=== PATIENT | female | born 1940 | race Caucasian/White ===

== ENCOUNTER 2019-04-27 01:41 | Outpatient (CLI) | payer MEDICARE, OTHER ==
[2019-04-27 10:38] LABS: #Basophils 0.1 thou/uL (0.0-0.2); #Eosinphils 0.3 thou/uL (0.0-0.7); #Lymphocytes 1.6 thou/uL (1.20-3.40); #Monocytes 0.6 thou/uL (0.11-0.59); #Neutrophils 4.7 thou/uL (1.40-6.50); %Eosinophils 4.1 % (0.0-10.0); %Lymphocytes 21.9 % (21.0-51.0); %Monocytes 8.3 % (0.0-10.0); %Neutrophils 64.7 % (42.0-75.0); Hemoglobin 14.5 g/dL (12.0-16.0); Mean Corpuscular HGB CONC 32.7 g/dL (32.0-36.0); Mean Corpuscular Hemoglobin 31.7 pg (27.0-31.0); Mean Corpuscular Volume 96.8 fL (78.0-98.0); Mean Platelet Volume 8.7 fL (7.4-10.4); Platelet Count 158 thou/uL (130-400); RBC Distribution Width 12.4 % (11.5-14.5); Red Blood Cell (RBC) Count 4.57 mill/uL (4.20-5.40); White Blood Cell (WBC) Count 7.2 thou/uL (4.8-10.8)
[2019-04-27 10:40] LABS: Bilirubin Negative (Negative); Blood, Urine Negative (Negative); Clarity CLEAR (Clear); Glucose, Urine (Dipstick) Negative (Negative); Leukocyte Moderate (Negative); Nitrite Negative (Negative); Protein, Urine (Dipstick) Negative (Neg-Trace); Specific Gravity, Urine 1.017 (1.002-1.036); Urobilinogen 0.2 mg/dL (0.2-1.0); pH, Urine 5.5 (5.0-9.0)
[2019-04-27 10:42] LABS: PTT 31.5 SEC (22.9-36.1); Prothrombin Time 13.5 SEC (12.0-14.7)
[2019-04-27 10:44] LABS: Bacteria/HPF None Seen HPF (None Seen)
[2019-04-27 10:46] LABS: Pathc Cast-AUWi Flag 3.53 (0-2.49)
[2019-04-27 10:53] LABS: Hyaline Casts/LPF 0-3 HYALINE CAST LPF (0-3 Hyaline); Other Casts/LPF None Seen LPF (0-3 Hyaline)
[2019-04-27 10:56] LABS: Anion Gap 15 mmol/L (10-20); BUN (Urea Nitrogen) 22 mg/dL (9.8-20.1); Calc. Creatinine Clearance 0 mL/min (70-130); Calcium 9.4 mg/dL (7.8-10.44); Carbon Dioxide 24 mmol/L (23-31); Chloride 104 mmol/L (98-107); Estimated GFR-MDRD 49; Glucose 83 mg/dL (83-110); Potassium 4.5 mmol/L (3.5-5.1); Sodium 138 mmol/L (136-145)
--- NOTE | 2019-04-28 21:24 | EKG ---
Test Reason : Blood Pressure : / mmHG Vent. Rate : 058 BPM Atrial Rate : 052 BPM P-R Int : 234 ms QRS Dur : 086 ms QT Int : 426 ms P-R-T Axes : 048 -08 008 degrees QTc Int : 418 ms Sinus bradycardia with 1st degree A-V block with Premature supraventricular complexes Low voltage QRS Cannot rule out Anterior infarct (cited on or before 24-DEC-2009) Abnormal ECG When compared with ECG of 24-DEC-2009 12:29, Premature supraventricular complexes are now Present CA interval has increased QRS voltage has decreased T wave inversion now evident in Anterior leads Confirmed by Fran SHUKLA ([id number]) on 04/28/2019 9:23:42 PM Referred By: MARISABEL Confirmed By:Fran SHUKLA
== END 2019-04-27 01:42 | disposition home or self-care (01) ==
LOC: LABBT 01:41
PROVIDERS: ATTEND Orthopaedic Surgery
DX: Z01.818 Encounter for other preprocedural examination (principal); M17.12 Unilateral primary osteoarthritis, left knee
CPT/HCPCS: 80048; 81001; 85025; 85610; 85730; 87081; 93005; 93010

== ENCOUNTER 2019-05-09 06:40 | Day surgery (SDC) | payer MEDICARE, OTHER ==
[2019-04-27 09:09] VITALS: BMI 35.4
[2019-05-09] MEDS ORDERED: Fentanyl 100 MCG/2 ML VIAL ONE ×3 (07:24→12:03)
[2019-05-09] MEDS ORDERED: Midazolam HCl 2 mg/2 ml Vial ONE (07:24)
[2019-05-09] MEDS ORDERED: Vancomycin HCl 1.5 GM in Sodium Chloride 0.9% 250 ML 300 ML IVPB SCH (07:30)
[2019-05-09] MEDS ORDERED: Tranexamic Acid 1,000 MG/10 ML VIAL ONE (07:44)
[2019-05-09] MEDS ORDERED: Levofloxacin 500 mg/D5W 100 ml Premix Bag ONE (07:44)
[2019-05-09] MEDS ORDERED: Sodium Chloride 0.9% 100 ML ONE (07:44)
[2019-05-09] MEDS ORDERED: Famotidine/PF 20 mg/2ml Vial ONE (07:44)
[2019-05-09] MEDS ORDERED: Fentanyl 100 MCG/2 ML VIAL SLOW IVP PRN ×3 (08:59→11:12)
[2019-05-09] MEDS ORDERED: Zolpidem Tartrate 5 MG TAB PO PRN ×2 (08:59→11:10)
[2019-05-09] MEDS ORDERED: Acetaminophen 325 MG TAB PO PRN (08:59)
[2019-05-09] MEDS ORDERED: Promethazine HCl 25 MG/ML VIAL IM PRN ×3 (08:59→11:10)
[2019-05-09] MEDS ORDERED: diphenhydrAMINE 25 MG CAP PO PRN (08:59)
[2019-05-09] MEDS ORDERED: HYDROcodone/Acetaminophen 10/325 mg Tablet PO PRN ×3 (08:59→11:10)
[2019-05-09] MEDS: Senokot S 8.6-50 MG TAB PO SCH ×2 (09:00→21:01)
[2019-05-09] MEDS ORDERED: Multivitamin W/ Minerals 1 TAB PO SCH (09:00)
[2019-05-09] MEDS: Ferrous Gluconate 324 MG TAB PO SCH ×2 (09:00→21:01)
[2019-05-09] MEDS: Aspirin 81 mg Enteric Coated Tablet PO SCH ×2 (09:00→21:01)
[2019-05-09] MEDS ORDERED: PROVENTIL INHALER 6.7 G (200 INHALATIONS) INH PRN (09:03)
[2019-05-09] MEDS ORDERED: Diphenoxylate HCl/Atropine Tablet PO PRN (09:03)
[2019-05-09] MEDS ORDERED: Ondansetron HCl/PF 4 MG/2 ML Vial IVP PRN (09:45)
[2019-05-09] MEDS ORDERED: Promethazine HCl 25 MG/ML VIAL SLOW IVP PRN (09:45)
[2019-05-09] MEDS ORDERED: Ketorolac Tromethamine 30 MG/ML VIAL ONE (11:05)
[2019-05-09] MEDS ORDERED: traMADol HCl 50 MG TAB PO PRN (11:10)
[2019-05-09] MEDS ORDERED: Ondansetron PF 4 MG/2 ML Vial IVP PRN (11:10)
[2019-05-09] MEDS ORDERED: HYDROmorphone 2 MG/ML VIAL ONE (11:19)
[2019-05-09] MEDS ORDERED: Ropivacaine 0.2% HCl/PF (40 MG/20 ML VIAL) ONE (11:24)
[2019-05-09] MEDS ORDERED: Ropivacaine 0.5% HCl/PF (150 MG/30 ML VIAL) ONE (11:24)
--- NOTE | 2019-05-09 11:38 | RAD ---
Radiograph left knee 2 views: DATE: 05/09/2019 HISTORY: 78-year-old female with chronic left knee pain due to osteoarthritis. FINDINGS: Metallic prostheses covered the resurfaced articular surfaces of distal femur and the tibial plateau. Resurfacing changes of posterior aspect of patella. Significant amounts of subcutaneous emphysema in the anterior soft tissues indicate that the procedure was very recent. IMPRESSION: Very recently status post total left knee replacement arthroplasty.
[2019-05-09] MEDS ORDERED: Glycopyrrolate 0.2 MG/ML 5 ML SYRINGE ONE (12:15)
[2019-05-09] MEDS ORDERED: Lidocaine 1% PF 5 ML VIAL ONE (12:15)
[2019-05-09] MEDS ORDERED: Rocuronium Bromide 10 MG/ML (10ML VIAL) ONE (12:15)
[2019-05-09] MEDS ORDERED: Ondansetron PF 4 MG/2 ML Vial ONE (12:15)
[2019-05-09] MEDS ORDERED: PROPOFOL 200 MG/20 ML VIAL ONE (12:15)
[2019-05-09] MEDS: Dicyclomine 20 MG TAB PO SCH ×3 (13:00→21:01)
--- NOTE | 2019-05-09 13:07 | OP ---
DATE OF PROCEDURE: 05/09/2019 PREOPERATIVE DIAGNOSIS: Degenerative joint disease, left knee. POSTOPERATIVE DIAGNOSIS: Degenerative joint disease, left knee. PROCEDURE PERFORMED: Left total knee arthroplasty using [place] [employer], 4 femur, 4 tibia, 9 mm CS X3 polyethylene, and a 32 patella. PLANNING FEEDER: Megan Mesa PA-C. BLOOD LOSS: Minimal. SPECIMEN: None. DRAIN: None. COMPLICATION: None. TOURNIQUET TIME: 59 minutes. PROCEDURE IN DETAIL: After informed consent was obtained in the preoperative holding area, the patient was taken to the operative suite where general anesthesia was induced. Once adequate level of general anesthesia was obtained, the patient was positioned and a well-padded tourniquet was placed around the left proximal thigh. The left lower extremity was then prepped and draped in the usual sterile fashion. Prior to exsanguination, a time-out was called and all members of the surgical team agreed upon site, surgeon, and patient. The extremity was then exsanguinated and the tourniquet was raised. A midline longitudinal incision was then made directly over the patella extending 2 fingerbreadths above the superior pole of the patella and 2 fingerbreadths inferior to the inferior patellar pole of the patella. Deeper subcutaneous layers were dissected sharply and local bleeding was controlled with Bovie electrocautery. A quad tendon longitudinal split was then made sharply and a median parapatellar arthrotomy was carried out both sharp and with Bovie electrocautery, carried down to 1 fingerbreadth medial to the tibial tubercle. The knee was then placed into flexion and the patella was everted nicely, and a copious fat pad ectomy was performed allowing for greater exposure of the tibia. The computer-assisted distal femoral fiducial was then placed and pinned firmly, and the distal femoral cutting guide was pinned firmly into place. The oscillating saw was then used to remove the appropriate amount of bone. The 4-in-1 cutting block was then placed on the distal femur and the oscillating saw was used to remove the appropriate amount of bone off the anterior, posterior, and chamfer cuts. After completion of bone cuts, the anterior cruciate ligament was resected sharply and the posterior cruciate ligament retractor was placed and the tibia was subluxed for better exposure. Partial meniscectomies were carried out, and the tibial computer-assisted fiducial was pinned, and the cutting guide was placed. Oscillating saw was then used to remove the bone, with Hohmann retractors used to take care and protect the collateral ligaments. After the tibial resection was performed, a laminar commercial energy rater was placed in between the freshened bone cuts. The knee placed at 90 degrees and further bilateral meniscectomies were carried out, and the curved osteotome and curettage were used to remove any excess bone spurs in the posterior compartment. The trial femoral component, tibial baseplate were placed with the appropriate polyethylene trial insert with an appropriate polyethylene spacer and patellar button. The knee was taken through full range of motion with flexion and extension from 0 to 90 degrees and patellar broach squarely in the trochlea without any squinting or subluxation noted. The knee was also stable to varus and valgus stressing at 0, 15, 45, and 90 degrees of flexion. The drawer was negative. All trial components were then removed and the keel punch was used to provide the appropriate defect in the tibia with a mallet. The freshened bone cuts were copiously irrigated with pulsatile lavage of about 1.5 L to remove all excess debris. The freshened bone cuts were then dried with suction and lap sponge. The knee was placed in flexion and retractors were placed to provide access to all bone cuts. Tobramycin-impregnated methyl methacrylate cement was then placed on the freshened bone cuts and implants which were malleted firmly into place. Curettage and [place] elevators were used to remove any excess bone cement. The knee was placed into full extension and the patellar button was placed under compression, and the cement was allowed to cure. Once completed, the components were again taken through full range of motion and copious irrigation of the knee was carried out with another liter of normal saline. All components were inspected fully with full range of motion and varus and valgus stressing. There was no laxity noted and full extension was observed clinically. Primary closure was accomplished with #2 interrupted Vicryl stitch of the arthrotomy defect. This was oversewn with a #2 running Quill barbed stitch. The gravitational platelet system was then injected into the arthrotomy prior to closure. The subcutaneous layer was then closed with a running 0 barbed Monocryl stitch and skin closure accomplished with a running subcuticular 3-0 Monocryl barbed Quill stitch and augmented with cement on the skin. Tourniquet was lowered. Good spontaneous return of distal pulses was noted clinically and a sterile dressing was applied to the incision. The procedure was terminated without any complications. The patient was awakened in the operative suite and the was removed, and the patient was taken to the recovery room in stable condition. Job ID: [id number]
[2019-05-09] MEDS: Sodium Chloride 0.9% 1,000 ML IV SCH ×2 (15:26→19:00)
[2019-05-09] MEDS: Ketorolac Tromethamine 30 MG/ML VIAL IM SCH ×2 (15:27→19:35)
[2019-05-09] MEDS ORDERED: Nitroglycerin 0.4 MG TAB 1 EACH PO PRN (16:40)
[2019-05-09] MEDS ORDERED: Polyethylene Glycol 3350 17 GM Packet PO PRN (16:40)
[2019-05-09] MEDS ORDERED: Nitroglycerin 0.4 MG TAB (25 Tab Bottle) ONE (16:47)
[2019-05-09] MEDS: Mometasone/Formoterol 120 PUFF INHALER INH SCH (18:46)
[2019-05-09] MEDS: Ketorolac Tromethamine 30 MG/ML VIAL IVP PRN (19:06)
--- NOTE | 2019-05-09 20:18 | PDOC.PN ---
- Subjective Encounter Start Date: 05/09/19 Encounter Start Time: 14:00 Patient seen and examined for med mngt. No fever/chills/CP/SOB/N/V. Pain controlled. No new complaints. No overnight events - Objective MAR Reviewed: Yes Vital Signs & Weight: Vital Signs (12 hours) Temp Pulse Pulse Resp BP BP Pulse Ox 05/09/19 20:01 97.7 F 60 18 101/66 94 L 05/09/19 18:46 54 L 14 05/09/19 16:18 91 92/58 L 05/09/19 14:00 99 Weight Weight 240 lb I&O: 05/08/19 05/09/19 05/10/19 06:59 06:59 06:59 Intake Total 980 Output Total 150 Balance 830 Result Diagrams: 05/10/19 05:42 EKG Reviewed by me: Yes (SB, 1 deg AV block) Phys Exam - Physical Examination Constitutional: NAD Respiratory: no wheezing, no rhonchi Cardiovascular: RRR, no rub Gastrointestinal: soft, non-tender, positive bowel sounds Musculoskeletal: no edema Neurological: moves all 4 limbs Psychiatric: A&O x 3 Dx/Plan - Plan DVT proph w/SCDs MPRESSION: HTN HLD h/o Esophageal spasm on SL NTG Obesity BMI 35.4 CKD 2 Mild persistent Asthma h/o Breast Ca NAOMI on CPAP Diet controlled DM2 PLAN: Cont Metoprolol/Statins Cont Breo - Add PRN nebs Cont CPAP HS Cont other meds as below Full code DPOA- spouse. Thank you for this consultation. Will follow Review of Systems - Review of Systems Respiratory: negative: Cough, Dry, Shortness of Breath, Hemoptysis, SOB with Excertion, Pleuritic Pain, Sputum, Wheezing Cardiovascular: negative: chest pain, palpitations, orthopnea, paroxysmal nocturnal dyspnea, edema, light headedness, other Gastrointestinal: negative: Nausea, Vomiting, Abdominal Pain, Diarrhea, Constipation, Melena, Hematochezia, Other Genitourinary: negative: Dysuria, Frequency, Incontinence, Hematuria, Retention , Other - Medications/Allergies Allergies/Adverse Reactions: Allergies Allergy/AdvReac Type Severity Reaction Status Date / Time Penicillins Allergy Rash Verified 04/27/19 09:09 Medications: Current Medications Acetaminophen (Tylenol) 650 mg PO Q4H PRN PRN Reason: Headache/Fever or Pain Hydrocodone Bitart/Acetaminophen ([place] 10/325) 1 tab PO Q4H PRN PRN Reason: Moderate Pain (4-6) Last Admin: 05/09/19 16:50 Dose: 1 tab Hydrocodone Bitart/Acetaminophen ([place] 10/325) 2 tab PO Q4H PRN PRN Reason: Severe Pain (7-10) Hydrocodone Bitart/Acetaminophen ([place] 10/325) 1 tab PO Q4H PRN PRN Reason: Pain (1-3) Hydrocodone Bitart/Acetaminophen ([place] 10/325) 2 tab PO Q4H PRN PRN Reason: PAIN (4-6) Albuterol Sulfate (Proventil Hfa) 1 puff INH Q4HR PRN PRN Reason: SOB &/or Wheezing Albuterol/Ipratropium (Duoneb) 3 ml NEB Q4H PRN PRN Reason: SOB &/or Wheezing Anastrozole (Arimidex) 1 mg PO DAILY [facility] Aspirin (Ecotrin) 81 mg PO BID [facility] Last Admin: 05/09/19 09:00 Dose: Not Given Cholecalciferol (Vitamin D3) 2,000 units PO DAILY [facility] Citalopram Hydrobromide (Celexa) 40 mg PO DAILY [facility] Dicyclomine HCl (Bentyl) 20 mg PO QID [facility] Last Admin: 05/09/19 16:51 Dose: 20 mg Diphenhydramine HCl (Benadryl) 25 mg PO Q6H PRN PRN Reason: Itching Diphenoxylate HCl/Atropine (Lomotil) 2 tab PO QID PRN PRN Reason: Diarrhea/Loose Stools Fentanyl (Sublimaze) 50 mcg SLOW IVP Q30MIN PRN PRN Reason: Moderate Pain (4-6) Fentanyl (Sublimaze) 100 mcg SLOW IVP Q1H PRN PRN Reason: Severe Pain (7-10) Fentanyl (Sublimaze) 50 mcg SLOW IVP Q1H PRN PRN Reason: Breakthrough Pain Ferrous Gluconate (Fergon) 324 mg PO BID [facility] Last Admin: 05/09/19 09:00 Dose: Not Given Vancomycin HCl 1.5 gm/ Sodium (Chloride) 300 mls @ 200 mls/hr IVPB ONCALL-OR [facility] Sodium Chloride (Normal Saline 0.9%) 1,000 mls @ 100 mls/hr IV .Q10H [facility] Last Admin: 05/09/19 19:00 Dose: 1,000 mls Levofloxacin 500 mg/ Device 100 mls @ 100 mls/hr IVPB Q24HR [facility] Stop: 05/10/19 16:00 Vancomycin HCl 1.5 gm/ Sodium (Chloride) 300 mls @ 200 mls/hr IVPB Q12HR [facility] Stop: 05/10/19 11:00 Ropivacaine 250 ml/ Device 250 mls @ 10 mls/hr NERVE BLCK INF [facility] Iron/Minerals/Multivitamins (Theragran M) 1 tab PO DAILY [facility] Ketorolac Tromethamine (Toradol) 15 mg IM Q8HR [facility] Stop: 05/11/19 14:01 Last Admin: 05/09/19 19:35 Dose: Not Given Ketorolac Tromethamine (Toradol) 15 mg IVP Q6H PRN PRN Reason: Moderate Pain (4-6) Stop: 05/12/19 11:11 Last Admin: 05/09/19 19:06 Dose: 15 mg Metoprolol Tartrate (Lopressor) 25 mg PO BID [facility] Mometasone Furoate/Formoterol Fumar (Dulera 100 Mcg/5 Mcg Inhaler) 2 puff INH BID-RT [facility] Last Admin: 05/09/19 18:46 Dose: 2 puff Nitroglycerin (Nitrostat) 0.4 mg PO Q5MIN PRN PRN Reason: Chest Pain/Esophageal spasm Ondansetron HCl (Zofran) 4 mg IVP Q6H PRN PRN Reason: Nausea/Vomiting Ondansetron HCl (Zofran) 4 mg IVP Q6H PRN PRN Reason: Nausea/Vomiting Polyethylene Glycol (Miralax) 17 gm PO DAILYPRN PRN PRN Reason: Constipation Promethazine HCl (Phenergan) 12.5 mg IM Q4H PRN PRN Reason: Nausea/Vomiting Promethazine HCl (Phenergan) 12.5 mg IM Q4H PRN PRN Reason: Nausea Senna/Docusate Sodium (Senokot S) 2 tab PO BID [facility] Last Admin: 05/09/19 09:00 Dose: Not Given Simvastatin (Zocor) 10 mg PO HS [facility] Sodium Chloride (Flush - Normal Saline) 10 ml IVF PRN PRN PRN Reason: Saline Flush Tramadol HCl (Ultram) 50 mg PO Q6H PRN PRN Reason: Mild Pain (1-3) Tramadol HCl (Ultram) 100 mg PO Q6H PRN PRN Reason: Moderate Pain 4-6 Zolpidem Tartrate (Ambien) 5 mg PO HSPRN PRN PRN Reason: Insomnia Zolpidem Tartrate (Ambien) 5 mg PO HSPRN PRN PRN Reason: Insomnia
[2019-05-09] MEDS: Simvastatin 5 MG TAB PO SCH (21:01)
[2019-05-09] MEDS: Metoprolol Tartrate 25 MG TAB PO SCH (21:01)
[2019-05-09] MEDS: Vancomycin HCl 1.5 GM in Sodium Chloride 0.9% 250 ML 300 ML IVPB SCH (22:24)
[2019-05-09] MEDS: HYDROcodone/Acetaminophen 10/325 mg Tablet PO PRN (22:29)
[2019-05-09] MEDS: traMADol HCl 50 MG TAB PO PRN (23:34)
[2019-05-10] MEDS: Ketorolac Tromethamine 30 MG/ML VIAL IVP PRN ×3 (01:39→22:28)
[2019-05-10] MEDS: Ketorolac Tromethamine 30 MG/ML VIAL IM SCH ×3 (05:17→22:28)
[2019-05-10] MEDS: Sodium Chloride 0.9% 1,000 ML IV SCH ×3 (05:20→23:16)
[2019-05-10] MEDS: HYDROcodone/Acetaminophen 10/325 mg Tablet PO PRN ×3 (05:21→20:13)
[2019-05-10] MEDS: traMADol HCl 50 MG TAB PO PRN ×3 (05:52→20:19)
[2019-05-10 06:24] LABS: Hemoglobin 11.6 g/dL (12.0-16.0); Mean Corpuscular HGB CONC 32.8 g/dL (32.0-36.0); Mean Corpuscular Hemoglobin 31.6 pg (27.0-31.0); Mean Corpuscular Volume 96.4 fL (78.0-98.0); Platelet Count 146 thou/uL (130-400); Red Blood Cell (RBC) Count 3.68 mill/uL (4.20-5.40); White Blood Cell (WBC) Count 9.2 thou/uL (4.8-10.8)
[2019-05-10] MEDS: Mometasone/Formoterol 120 PUFF INHALER INH SCH (06:56)
[2019-05-10] MEDS: Citalopram 20 MG TAB PO SCH (08:21)
[2019-05-10] MEDS: Multivitamin W/ Minerals 1 TAB PO SCH (08:22)
[2019-05-10] MEDS: Metoprolol Tartrate 25 MG TAB PO SCH ×2 (08:22→20:13)
[2019-05-10] MEDS: Senokot S 8.6-50 MG TAB PO SCH ×2 (08:22→20:12)
[2019-05-10] MEDS: Aspirin 81 mg Enteric Coated Tablet PO SCH ×2 (08:38→20:12)
[2019-05-10] MEDS: Dicyclomine 20 MG TAB PO SCH ×4 (08:38→20:13)
[2019-05-10] MEDS ORDERED: Aspirin 81 mg Enteric Coated Tablet PO SCH (09:00)
[2019-05-10] MEDS: Vancomycin HCl 1.5 GM in Sodium Chloride 0.9% 250 ML 300 ML IVPB SCH (09:48)
[2019-05-10] MEDS: Ferrous Gluconate 324 MG TAB PO SCH ×2 (09:59→20:13)
[2019-05-10] MEDS: Ondansetron PF 4 MG/2 ML Vial IVP PRN ×2 (11:58→23:37)
[2019-05-10] MEDS: Ropivacaine HCl/PF 250 ML in Premix Bag 1 BAG NERVE BLCK SCH (12:01)
--- NOTE | 2019-05-10 13:29 | PRG ---
DATE OF SERVICE: 05/10/2019 SUBJECTIVE: Leidy is an 78-year-old white female, who is postop day 1 from a left total knee arthroplasty. Today, she complains of nausea and a little bit of dizziness with standing. Pain has been variable. She did not sleep much last night. OBJECTIVE: Temperature 98.6, pulse 61, respiratory rate is 18, O2 saturation is 93% to 97% on room air, blood pressure is 110/67. She is alert, oriented, responsive, appropriate with examiner. Incision, there is no strikethrough. She is neurovascularly intact with good dorsiflexion, inversion, eversion. No malrotation is appreciated. LABORATORY DATA: Hemoglobin and hematocrit 11.6 and 35.5. IMPRESSION: An 78-year-old female, postop day 1, left total knee arthroplasty. PLAN: Continue current care. Add Zofran. Remove iron supplementation and recheck later this afternoon. Job ID: [id number]
[2019-05-10] MEDS: Anastrozole 1 MG TAB PO SCH (17:58)
[2019-05-10] MEDS: Simvastatin 5 MG TAB PO SCH (20:12)
--- NOTE | 2019-05-10 23:01 | PDOC.PN ---
- Subjective Encounter Start Date: 05/10/19 Encounter Start Time: 15:00 Subjective: pt up in chair nauseated - Objective Vital Signs & Weight: Vital Signs (12 hours) Temp Pulse Resp BP Pulse Ox 05/10/19 20:31 94 L 05/10/19 19:54 98.0 F 57 L 18 96/64 93 L 05/10/19 15:39 98.6 F 50 L 18 160/77 H 94 L Weight Admit Weight 240 lb Weight 240 lb I&O: 05/09/19 05/10/19 05/11/19 06:59 06:59 06:59 Intake Total 980 700 Output Total 150 1 Balance 830 699 Result Diagrams: 05/10/19 05:42 Phys Exam - Physical Examination Neck: no nodes, no JVD, supple, full ROM Respiratory: no wheezing, no rales, no rhonchi, wheezing present, clear to auscultation bilateral Cardiovascular: RRR, no significant murmur, no rub, gallop, irregular Gastrointestinal: soft, non-tender, no distention, positive bowel sounds Dx/Plan (1) Nausea Code(s): R11.0 - NAUSEA Status: Acute (2) Esophageal spasm Code(s): K22.4 - DYSKINESIA OF ESOPHAGUS Status: Acute (3) HTN (hypertension) Code(s): I10 - ESSENTIAL (PRIMARY) HYPERTENSION Status: Acute - Plan Agree with holding iron tab -: pt states she has not been constipated -: will put holding parameters for low bp -: will check bmp in am * . Review of Systems - Review of Systems Gastrointestinal: Nausea - Medications/Allergies Allergies/Adverse Reactions: Allergies Allergy/AdvReac Type Severity Reaction Status Date / Time Penicillins Allergy Rash Verified 04/27/19 09:09 Medications: Current Medications Acetaminophen (Tylenol) 650 mg PO Q4H PRN PRN Reason: Headache/Fever or Pain Hydrocodone Bitart/Acetaminophen ([place] 10/325) 1 tab PO Q4H PRN PRN Reason: Moderate Pain (4-6) Last Admin: 05/09/19 16:50 Dose: 1 tab Hydrocodone Bitart/Acetaminophen ([place] 10/325) 2 tab PO Q4H PRN PRN Reason: Severe Pain (7-10) Last Admin: 05/10/19 20:13 Dose: 2 tab Hydrocodone Bitart/Acetaminophen ([place] 10/325) 1 tab PO Q4H PRN PRN Reason: Pain (1-3) Hydrocodone Bitart/Acetaminophen ([place] 10/325) 2 tab PO Q4H PRN PRN Reason: PAIN (4-6) Albuterol Sulfate (Proventil Hfa) 1 puff INH Q4HR PRN PRN Reason: SOB &/or Wheezing Albuterol/Ipratropium (Duoneb) 3 ml NEB Q4H PRN PRN Reason: SOB &/or Wheezing Anastrozole (Arimidex) 1 mg PO DAILY [facility] Last Admin: 05/10/19 17:58 Dose: 1 mg Aspirin (Ecotrin) 81 mg PO BID [facility] Last Admin: 05/10/19 20:12 Dose: 81 mg Cholecalciferol (Vitamin D3) 2,000 units PO DAILY [facility] Last Admin: 05/10/19 08:21 Dose: 2,000 units Citalopram Hydrobromide (Celexa) 40 mg PO DAILY [facility] Last Admin: 05/10/19 08:21 Dose: 40 mg Dicyclomine HCl (Bentyl) 20 mg PO QID [facility] Last Admin: 05/10/19 20:13 Dose: 20 mg Diphenhydramine HCl (Benadryl) 25 mg PO Q6H PRN PRN Reason: Itching Diphenoxylate HCl/Atropine (Lomotil) 2 tab PO QID PRN PRN Reason: Diarrhea/Loose Stools Fentanyl (Sublimaze) 50 mcg SLOW IVP Q30MIN PRN PRN Reason: Moderate Pain (4-6) Fentanyl (Sublimaze) 100 mcg SLOW IVP Q1H PRN PRN Reason: Severe Pain (7-10) Fentanyl (Sublimaze) 50 mcg SLOW IVP Q1H PRN PRN Reason: Breakthrough Pain Ferrous Gluconate (Fergon) 324 mg PO BID [facility] Last Admin: 05/10/19 20:13 Dose: 324 mg Vancomycin HCl 1.5 gm/ Sodium (Chloride) 300 mls @ 200 mls/hr IVPB ONCALL-OR [facility] Sodium Chloride (Normal Saline 0.9%) 1,000 mls @ 100 mls/hr IV .Q10H [facility] Last Admin: 05/10/19 17:45 Dose: Not Given Ropivacaine 250 ml/ Device 250 mls @ 10 mls/hr NERVE BLCK INF [facility] Last Admin: 05/10/19 12:01 Dose: 250 mls Iron/Minerals/Multivitamins (Theragran M) 1 tab PO DAILY [facility] Last Admin: 05/10/19 08:22 Dose: 1 tab Ketorolac Tromethamine (Toradol) 15 mg IM Q8HR [facility] Stop: 05/11/19 14:01 Last Admin: 05/10/19 22:28 Dose: Not Given Ketorolac Tromethamine (Toradol) 15 mg IVP Q6H PRN PRN Reason: Moderate Pain (4-6) Stop: 05/12/19 11:11 Last Admin: 05/10/19 22:28 Dose: 15 mg Metoprolol Tartrate (Lopressor) 25 mg PO BID [facility] Last Admin: 05/10/19 20:13 Dose: 25 mg Mometasone Furoate/Formoterol Fumar (Dulera 100 Mcg/5 Mcg Inhaler) 2 puff INH BID-RT [facility] Last Admin: 05/10/19 06:56 Dose: 2 puff Nitroglycerin (Nitrostat) 0.4 mg PO Q5MIN PRN PRN Reason: Chest Pain/Esophageal spasm Last Admin: 05/09/19 23:29 Dose: 0.4 mg Ondansetron HCl (Zofran) 4 mg IVP Q6H PRN PRN Reason: Nausea/Vomiting Last Admin: 05/10/19 11:58 Dose: 4 mg Ondansetron HCl (Zofran) 4 mg IVP Q6H PRN PRN Reason: Nausea/Vomiting Polyethylene Glycol (Miralax) 17 gm PO DAILYPRN PRN PRN Reason: Constipation Promethazine HCl (Phenergan) 12.5 mg IM Q4H PRN PRN Reason: Nausea/Vomiting Promethazine HCl (Phenergan) 12.5 mg IM Q4H PRN PRN Reason: Nausea Senna/Docusate Sodium (Senokot S) 2 tab PO BID [facility] Last Admin: 05/10/19 20:12 Dose: 2 tab Simvastatin (Zocor) 10 mg PO HS [facility] Last Admin: 05/10/19 20:12 Dose: 10 mg Sodium Chloride (Flush - Normal Saline) 10 ml IVF PRN PRN PRN Reason: Saline Flush Tramadol HCl (Ultram) 50 mg PO Q6H PRN PRN Reason: Mild Pain (1-3) Tramadol HCl (Ultram) 100 mg PO Q6H PRN PRN Reason: Moderate Pain 4-6 Last Admin: 05/10/19 20:19 Dose: 100 mg Zolpidem Tartrate (Ambien) 5 mg PO HSPRN PRN PRN Reason: Insomnia Zolpidem Tartrate (Ambien) 5 mg PO HSPRN PRN PRN Reason: Insomnia
[2019-05-11] MEDS: Ondansetron PF 4 MG/2 ML Vial IVP PRN ×2 (04:50→10:47)
[2019-05-11] MEDS: HYDROcodone/Acetaminophen 10/325 mg Tablet PO PRN ×3 (04:51→18:03)
[2019-05-11] MEDS: Ketorolac Tromethamine 30 MG/ML VIAL IVP PRN ×2 (04:51→20:40)
[2019-05-11] MEDS: Mometasone/Formoterol 120 PUFF INHALER INH SCH ×3 (05:00→18:10)
[2019-05-11 05:01] LABS: Mean Corpuscular HGB CONC 32.9 g/dL (32.0-36.0); Mean Corpuscular Hemoglobin 31.9 pg (27.0-31.0); Mean Platelet Volume 8.1 fL (7.4-10.4); Platelet Count 141 thou/uL (130-400); RBC Distribution Width 11.7 % (11.5-14.5); Red Blood Cell (RBC) Count 3.75 mill/uL (4.20-5.40); White Blood Cell (WBC) Count 8.1 thou/uL (4.8-10.8)
[2019-05-11] MEDS: Ketorolac Tromethamine 30 MG/ML VIAL IM SCH ×2 (05:05→13:56)
[2019-05-11 05:20] LABS: Anion Gap 11 mmol/L (10-20); BUN (Urea Nitrogen) 16 mg/dL (9.8-20.1); Calc. Creatinine Clearance 88 mL/min (70-130); Calcium 8.2 mg/dL (7.8-10.44); Carbon Dioxide 24 mmol/L (23-31); Chloride 95 mmol/L (98-107); Estimated GFR-MDRD 62; Glucose 75 mg/dL (83-110); Potassium 4.6 mmol/L (3.5-5.1); Sodium 125 mmol/L (136-145)
[2019-05-11] MEDS: Aspirin 81 mg Enteric Coated Tablet PO SCH ×2 (08:35→20:32)
[2019-05-11] MEDS: Ferrous Gluconate 324 MG TAB PO SCH ×2 (08:35→20:31)
[2019-05-11] MEDS: Dicyclomine 20 MG TAB PO SCH ×4 (08:36→20:32)
[2019-05-11] MEDS: Senokot S 8.6-50 MG TAB PO SCH ×2 (08:36→20:32)
[2019-05-11] MEDS: Multivitamin W/ Minerals 1 TAB PO SCH (08:36)
[2019-05-11] MEDS: Citalopram 20 MG TAB PO SCH (08:36)
[2019-05-11] MEDS: Metoprolol Tartrate 25 MG TAB PO SCH ×2 (08:37→20:30)
[2019-05-11] MEDS: Anastrozole 1 MG TAB PO SCH (10:51)
[2019-05-11] MEDS: Sodium Chloride 0.9% 1,000 ML IV SCH ×2 (10:54→19:23)
[2019-05-11] MEDS: Ropivacaine HCl/PF 250 ML in Premix Bag 1 BAG NERVE BLCK SCH (12:20)
--- NOTE | 2019-05-11 18:14 | PDOC.PN ---
- Subjective Encounter Start Date: 05/11/19 Encounter Start Time: 16:00 Has had poor appetite and mild nausea with no vomiting. Has had surgery in the past with no problems. - Objective Vital Signs & Weight: Vital Signs (12 hours) Temp Pulse Resp BP Pulse Ox 05/11/19 15:19 99.1 F 61 15 109/76 93 L 05/11/19 12:11 98.1 F 65 18 142/79 H 96 05/11/19 08:48 61 105/69 05/11/19 07:45 97.3 F L 58 L 14 119/75 93 L Weight Admit Weight 240 lb Weight 240 lb I&O: 05/10/19 05/11/19 05/12/19 06:59 06:59 06:59 Intake Total 980 700 Output Total 150 1 Balance 830 699 Result Diagrams: 05/11/19 04:24 05/11/19 04:24 Phys Exam - Physical Examination Constitutional: NAD Respiratory: no wheezing, no rales, no rhonchi, clear to auscultation bilateral Cardiovascular: RRR, no significant murmur Gastrointestinal: soft, non-tender, no distention, positive bowel sounds Musculoskeletal: no edema Dx/Plan (1) Status post knee replacement Code(s): Z96.659 - PRESENCE OF UNSPECIFIED ARTIFICIAL KNEE JOINT Status: Acute (2) HTN (hypertension) Code(s): I10 - ESSENTIAL (PRIMARY) HYPERTENSION Status: Acute (3) Nausea Code(s): R11.0 - NAUSEA Status: Acute - Plan * Continue symptomatic treatment of the nausea. * Post op course per ortho. * Suspect she will be better tomorrow.
[2019-05-11] MEDS: Simvastatin 5 MG TAB PO SCH (20:32)
[2019-05-12] MEDS: HYDROcodone/Acetaminophen 10/325 mg Tablet PO PRN (03:54)
[2019-05-12 07:59] VITALS: TEMP 98.5
[2019-05-12] MEDS: Sodium Chloride 0.9% 1,000 ML IV SCH (08:35)
[2019-05-12 08:37] VITALS: BP 129/75
[2019-05-12] MEDS: Mometasone/Formoterol 120 PUFF INHALER INH SCH (08:37)
[2019-05-12] MEDS: Citalopram 20 MG TAB PO SCH (08:39)
[2019-05-12] MEDS: Senokot S 8.6-50 MG TAB PO SCH (08:39)
[2019-05-12] MEDS: Dicyclomine 20 MG TAB PO SCH (08:40)
[2019-05-12] MEDS: Anastrozole 1 MG TAB PO SCH (08:40)
[2019-05-12] MEDS: Aspirin 81 mg Enteric Coated Tablet PO SCH (08:40)
[2019-05-12] MEDS: Ferrous Gluconate 324 MG TAB PO SCH (08:40)
[2019-05-12] MEDS: Multivitamin W/ Minerals 1 TAB PO SCH (08:40)
[2019-05-12] MEDS: Metoprolol Tartrate 25 MG TAB PO SCH (08:40)
[2019-05-12] MEDS ORDERED: Ondansetron ODT 4 MG TAB PO PRN (11:00)
== END 2019-05-12 11:10 | disposition home or self-care (01) ==
LOC: SDC 06:40 → SJJU 14:05 → SDC 05-12 11:10
PROVIDERS: ATTEND Orthopaedic Surgery
PROC: 0SRD069 Replacement of Left Knee Joint with Oxidized Zirconium on Polyethylene Synthetic Substitute, Cemented, Open Approach (ICD-10-PCS; principal; 2019-05-09)
PROC: 8E0YXBZ Computer Assisted Procedure of Lower Extremity (ICD-10-PCS; 2019-05-09)
DX: M17.12 Unilateral primary osteoarthritis, left knee (principal); I12.9 Hypertensive chronic kidney disease with stage 1 through stage 4 chronic kidney disease, or unspecified chronic kidney disease; E11.22 Type 2 diabetes mellitus with diabetic chronic kidney disease; N18.2 Chronic kidney disease, stage 2 (mild); K22.4 Dyskinesia of esophagus; E78.5 Hyperlipidemia, unspecified; E66.9 Obesity, unspecified; G47.33 Obstructive sleep apnea (adult) (pediatric); J45.30 Mild persistent asthma, uncomplicated; Z68.35 Body mass index [BMI] 35.0-35.9, adult; Z99.89 Dependence on other enabling machines and devices; Z88.0 Allergy status to penicillin; Z79.82 Long term (current) use of aspirin; Z79.51 Long term (current) use of inhaled steroids; Z79.899 Other long term (current) drug therapy
CPT/HCPCS: 20985; 27447; 73560; 80048; 85027; 94640 ×2; 97110 ×2; 97116 ×4; 97139 ×4; 97150; 97530; 98962; C1713; C1776; 36415; J0131; J1170; J1885; J1956; J2001; J2250; J2405; J2704; J2795; J3010; J3370; J3490; J7050; Q0162; S0028